=== PATIENT | female | born 1985 | race African-American/Black ===

== ENCOUNTER 2016-08-12 05:13 | Day surgery (SDC) | payer OTHER ==
[2016-08-11 10:30] VITALS: BMI 20.6
--- NOTE | 2016-08-12 08:35 | HP ---
History & Physical Update - History History: No Change - Physical Physical: No Change - Assessment Assessment: No Change - Plan Plan: No Change
[2016-08-12] MEDS ORDERED: PROPOFOL 20 ML ONE (08:54)
[2016-08-12] MEDS ORDERED: SUCCINYLCHOLINE CHLORIDE 200 MG/10 ML VIAL ONE (08:54)
[2016-08-12] MEDS ORDERED: MIDAZOLAM HCL 2 MG/2 ML SINGLE DOSE VIAL ONE ×2 (08:54→09:16)
[2016-08-12] MEDS ORDERED: LIDOCAINE HCL/PF 2% SDV 5ML VIAL ONE (08:56)
[2016-08-12] MEDS ORDERED: PROMETHAZINE HCL 25 MG/1 ML VIAL IVPUSH PRN (09:09)
[2016-08-12] MEDS ORDERED: HYDROmorphone HCL CARPU-JECT 1 MG/1 ML DISP.SYRIN IVPUSH PRN (09:09)
[2016-08-12] MEDS ORDERED: HYDROmorphone HCL CARPU-JECT 2 MG/1 ML DISP.SYRIN IVPUSH ONE ×4 (12:40→13:10)
--- NOTE | 2016-08-12 12:41 | OP ---
Operative Note - Note: Operative Date: 08/12/16 Pre-Operative Diagnosis: Multinodular thyroid goiter. Operation: Subtotal thyroidectomy, (right total lobectomy, isthmusectomy, reloval of body and lower pole of left lobe of thyroid),. Removal of bilateral mediastinal goiters, through a cervical approach,. Use of nervana nerve monitor. Findings: Bilateral large multinodular thyroid goiter with bilateral extension into the mediastinum. Left upper pole without nodules, left intact. Post-Operative Diagnosis: Same as Pre-op Surgeon: Taurus Robles Blister Packaging Machine Operator: Kassi Cross Anesthesia: General Specimens Removed: Thyroid , right lobe, isthmus, body and inferior pole of left lobe of thyroid. Estimated Blood Loss (mls): 20 Drains & Tubes with Location: No 15 drain placed in the wound. Operative Report Dictated: Yes
[2016-08-12] MEDS ORDERED: HYDROmorphone HCL CARPU-JECT 2 MG/1 ML DISP.SYRIN ONE (12:43)
[2016-08-12] MEDS ORDERED: OXYCODONE/APAP 5/325MG COMBO TABLET PO PRN (12:44)
[2016-08-12] MEDS ORDERED: ACETAMINOPHEN INJECTION 100 ML IVPB ONE (13:11)
[2016-08-12] MEDS ORDERED: ACETAMINOPHEN 1000 MG/100 ML VIAL (NON FORMULARY) IVPB ONE ×2 (13:17→14:04)
--- NOTE | 2016-08-12 14:24 | OP ---
Operative Note - Note: Operative Date: 08/12/16 Pre-Operative Diagnosis: Incarcerated right inguinal hernia. Operation: Repair of incarcerated right inguinal hernia with plug and mesh. Findings: Large , wide sac. Large defect on posterior wall of inguinal canal. Implants: Plug and mesh. Post-Operative Diagnosis: Same as Pre-op Surgeon: Taurus Robles Wallet Assembler: Kassi Cross Anesthesia: General Specimens Removed: Hernial sac. Estimated Blood Loss (mls): 15 Operative Report Dictated: Yes
--- NOTE | 2016-08-12 14:25 | SURG ---
Surgery Concrete Mixing Truck Driver Note Concrete Mixing Truck Driver: Kassi Cross PA-C Date of Service: 08/12/16 Diagnosis: Multinodular thyroid goiter Procedure: Subtotal thyroidectomy (right total lobectomy, isthmusectomy, removal of body and lower pole of left lobe of thyroid), removal of bilateral mediastinal goiters through cervical approach, with nerve monitoring I was present for the entirety of the operative procedure. For further detail, please refer to operative report. Visit type - Case Type Case Type: Scheduled Admission - Emergency Emergency Visit: No - New patient This patient is new to me today: Yes Date on this admission: 08/12/16 - Critical Care Critical Care patient: No
--- NOTE | 2016-08-12 15:20 | OP ---
DATE OF OPERATION: 08/12/2016 PREOPERATIVE DIAGNOSIS: Bilateral large multi-nodular thyroid goiters, increasing in size over a period of the last 4 to 5 years, causing airway obstruction and dysphagia. POSTOPERATIVE DIAGNOSIS: Bilateral multi-nodular thyroid goiters, with bilateral extension into the mediastinum. OPERATIVE PROCEDURES: 1. Subtotal thyroidectomy (Right total lobectomy. Isthmusectomy. Removal of body and lower pole of the left lobe of the thyroid). 2. Removal of bilateral mediastinal goiters through a cervical approach. 3. Use of Nerveana nerve monitoring device. SURGEON: Chris Robles MD ASSISTANTS: MORRIS Duval, and medical student ANESTHESIA: General anesthesia using the Nerveana endotracheal tube. OPERATIVE PROCEDURE: This 30-year-old woman had bilateral extensive thyroid nodules of many years. She had two FNA biopsies which showed that these were benign nodules. The patient was brought in for a thyroidectomy. Risks, benefits, and complications were again discussed with the patient. The patient was given general anesthesia using the Nerveana endotracheal tube. The patient was positioned with the neck in extension. The neck was painted and draped. A timeout was called. A trabsverse skin incision was made along the skin crease about 1 fingerbreadth above the clavicle. The incision was deepened through the skin, subcutaneous tissue and the platysma muscle. Superior and inferior skin flaps were then raised within the platysma and the deep cervical fascia, superior lip of the hyoid bone inferiorly , anterior to and through the clavicle on either side. The sternocleidomastoid muscle was freed from the flap on either side. The strap muscles were then divided in the midline from the hyoid bone to sternal notch. The thyroid gland was then exposed. This was found to be significantly enlarged and with multiple nodules, the right being larger than the left, extending bilaterally into the upper mediastinum and posteriorly all the way down wrapped around the airway, going into the prevertebral fascia. The gland was then carefully mobilized and brought anteriorly into the wound. The right lobe of the thyroid was mobilized. The superior thyroid was also divided as close to the gland as possible. The gland was carefully mobilized inferiorly, as well, dividing the vessels coming into the gland after their division to the parathyroid glands. Both parathyroid glands were then identified and preserved with its blood supply intact. The gland was mobilized medially. The middle thyroid vein was also divided between clips and the LigaSure. The right recurrent laryngeal nerve was identified and preserved all along its course with appropriate response to stimulation of the nerve which was maintained throughout the procedure. The gland was then mobilized across the pretracheal fascial plane, across the isthmus, towards the left. The large mediastinal goiter was also moved and mobilized towards the left. The inferior pole of the left lobe of the thyroid gland was again pulled out of the mediastinum into the neck. The vessels were divided as close to the gland as possible. The left recurrent laryngeal nerve was also identified and preserved throughout its course, throughout the procedure. The upper pole of the left lobe of the thyroid gland appeared normal and without any nodules and was therefore left intact. Both parathyroids on the left, were also identified and preserved with its blood supply intact. The gland was mobilized medial to the parathyroid glands. The left recurrent laryngeal nerve was identified and preserved all along, until it entered the cricothyroid muscle. The gland was then divided using 2 sets of Luis clamps, preserving the upper pole intact. The specimen was divided and sent to Pathology. The upper pole of the left lobe of the thyroid gland was then oversewn with continuous 3-0 Vicryl sutures in a running locking fashion. Hemostasis was maintained throughout the procedure. Both recurrent laryngeal nerves were intact and showed appropriate response to stimulation. Hemostasis was satisfactory. A number 8 round drainage tube was placed in the wound and brought out through a stab wound on the left side of the neck. The wound was irrigated. Hemostasis was satisfactory. The stab wound was approximated with interrupted and aiowkr-wa-nuntn 3-0 Vicryl sutures, platysma with buried interrupted 3-0 Vicryl sutures, and skin approximated with continuous 4-0 Monocryl sutures. The drain was anchored with number 1 Prolene sutures. Dermabond was applied across the skin edges. Estimated blood loss was 20 mL. The patient tolerated the procedure well, was extubated, and sent to the recovery room in satisfactory and stable condition. Marycruz [id number] MTDD
[2016-08-12] MEDS: LACTATED RINGERS SOLUTION 1,000 ML IV SCH (20:05)
[2016-08-12] MEDS: ACETAMINOPHEN 325 MG TABLET (FP) PO PRN (20:18)
[2016-08-12] MEDS: oxyCODONE HCL 5 MG TABLET PO PRN (20:18)
[2016-08-13] MEDS: ACETAMINOPHEN 325 MG TABLET (FP) PO PRN ×2 (05:43→14:08)
[2016-08-13] MEDS: oxyCODONE HCL 5 MG TABLET PO PRN ×2 (05:43→14:09)
--- NOTE | 2016-08-13 11:32 | PN ---
Progress Note, Physician Chief Complaint: Pt. comfortable, pain controlled, no GA complaints. - Current Medication List Current Medications: Active Medications Acetaminophen (Tylenol -) 325 mg PO Q6H PRN PRN Reason: PAIN 1-5 Last Admin: 08/13/16 05:43 Dose: 325 mg Diphenhydramine HCl (Benadryl Injection -) 25 mg IVPUSH ONCE PRN PRN Reason: itching Stop: 08/13/16 14:05 Fentanyl (Sublimaze Injection -) 50 mcg IVPUSH [id number] PRN PRN Reason: PAIN Stop: 08/15/16 14:05 Hydromorphone HCl (Dilaudid Injection -) 0.5 mg IVPUSH [id number] PRN PRN Reason: PAIN Stop: 08/15/16 09:10 Lactated Ringer's (Lactated Ringers Solution) 1,000 mls @ 75 mls/hr IV ASDIR MICHOACANO Last Admin: 08/12/16 20:05 Dose: Not Given Oxycodone HCl (Roxicodone -) 5 mg PO Q6H PRN PRN Reason: PAIN 1-5 Last Admin: 08/13/16 05:43 Dose: 5 mg - Objective Vital Signs: Vital Signs Temperature 98.6 F 08/13/16 09:00 Pulse Rate 67 08/13/16 09:00 Respiratory Rate 16 08/13/16 09:00 Blood Pressure 111/65 08/13/16 09:00 O2 Sat by Pulse Oximetry (%) 100 08/12/16 21:00 Constitutional: Yes: Well Nourished, No Distress, Calm Musculoskeletal: Yes: WNL Neurological: Yes: WNL, Alert, Oriented Assessment/Plan POD#1 s/p Throidectomy under GA. Doing well. D/C from anesthesia care.
--- NOTE | 2016-08-13 14:04 | PN ---
Progress Note, Physician - Current Medication List Current Medications: Active Medications Acetaminophen (Tylenol -) 325 mg PO Q6H PRN PRN Reason: PAIN 1-5 Last Admin: 08/13/16 05:43 Dose: 325 mg Diphenhydramine HCl (Benadryl Injection -) 25 mg IVPUSH ONCE PRN PRN Reason: itching Stop: 08/13/16 14:05 Fentanyl (Sublimaze Injection -) 50 mcg IVPUSH [id number] PRN PRN Reason: PAIN Stop: 08/15/16 14:05 Hydromorphone HCl (Dilaudid Injection -) 0.5 mg IVPUSH [id number] PRN PRN Reason: PAIN Stop: 08/15/16 09:10 Lactated Ringer's (Lactated Ringers Solution) 1,000 mls @ 75 mls/hr IV ASDIR MICHOACANO Last Admin: 08/12/16 20:05 Dose: Not Given Oxycodone HCl (Roxicodone -) 5 mg PO Q6H PRN PRN Reason: PAIN 1-5 Last Admin: 08/13/16 05:43 Dose: 5 mg - Objective Vital Signs: Vital Signs Temperature 98.6 F 08/13/16 09:00 Pulse Rate 67 08/13/16 09:00 Respiratory Rate 16 08/13/16 09:00 Blood Pressure 111/65 08/13/16 09:00 O2 Sat by Pulse Oximetry (%) 100 08/13/16 09:00 Assessment/Plan Surgery: Patient is comfortable. Voice is normal. Drain is removed . Calcium is 8.1 mgm. Discharge home. She will be seen in the office on Monday.
[2016-08-13] MEDS: LACTATED RINGERS SOLUTION 1,000 ML IV SCH (14:06)
[2016-08-13 14:37] VITALS: BP 125/86; PULSE 74; TEMP 98.1
--- NOTE | 2016-08-15 13:13 | PATH ---
Surgical Pathology Report Patient Name: SOLA CINTRON [facility]. Rec. #: [id number] /Age/Gender: 1985 (Age: 30) / F Account: [id number] Location: AMBULATORY SURG Taken: 08/12/2016 Received: 08/12/2016 Reported: 08/15/2016 Physicians: Chris Robles M.D. Specimen(s) Received SUBTOTAL THYROIDECTOMY Clinical History Multinodular thyroid goiter Final Diagnosis THYROID GLAND, RIGHT LOBE, ISTHMUS, BODY AND INFERIOR POLE OF LEFT LOBE, SUBTOTAL THYROIDECTOMY: BENIGN MULTINODULAR HYPERPLASIA (MULTINODULAR GOITER) WITH EXTENSIVE DEGENERATIVE AND CYSTIC CHANGES. FOCAL CHANGES SUGGESTIVE OF PRIOR BIOPSY SITE. Electronically Signed Michael Burton M.D. Gross Description Received in formalin labeled "right lobe, isthmus, body and inferior pole of left lobe of thyroid" is a 99 g thyroidectomy specimen including a right lobe (8.4 x 5.4 x 3.7 cm), isthmus (2.0 x 1.8 x 0.7 cm), and a portion of the left lobe (4.5 x 3.4 x 1.7 cm). The outer capsule is red-brown and mostly intact. The right lobe is inked red, the isthmus is inked green and the left lobe is inked black. Sectioning reveals multiple heterogeneous, focally hemorrhagic and focally cystic colloid appearing nodules. The remaining thyroid parenchyma is red-brown and beefy. Paper Stripper sections are submitted in 18 cassettes as follows: 1-6-left lobe sequentially from superior to inferior; 7-isthmus; 8-18-right lobe sequentially from superior to inferior. /08/12/201608/12/2016
== END 2016-08-13 15:06 | disposition home or self-care (01) ==
LOC: JASU-SURG 05:13 → JASUSAT 05:13 → J8W 15:28 → JASUSAT 08-13 15:06
PROVIDERS: ATTEND Specialist
PROC: 0GBG0ZZ Excision of Left Thyroid Gland Lobe, Open Approach (ICD-10-PCS; 2016-08-12)
PROC: 0GTH0ZZ Resection of Right Thyroid Gland Lobe, Open Approach (ICD-10-PCS; principal; 2016-08-12 09:30)
DX: E04.2 Nontoxic multinodular goiter (principal)
CPT/HCPCS: 36415; 82310; 88307-TC; 94760